=== PATIENT | male | born 1980 | race Two or more races ===

== ENCOUNTER 2023-06-16 14:47 | Emergency (ER) | payer OTHER ==
[~2023-06-16] VITALS: Ht 167.6 cm; Wt 85.8 kg
[2023-06-16 14:47] VITALS: BP 134/87; PULSE 90; RESP 18; TEMP 98.2; O2SAT 97
[2023-06-16] MEDS ORDERED: TYLENOL PO ONE (15:12)
[2023-06-16] MEDS: TYLENOL PO STA (15:30)
[2023-06-16 15:50] VITALS: BP 136/85; PULSE 85; RESP 18; O2SAT 97
[2023-06-16 15:51] VITALS: BP_SYST 136; RESP 18
== END 2023-06-16 15:56 | disposition home or self-care (01) ==
LOC: ER 14:47
DX: S80.02XA Contusion of left knee, initial encounter (principal); S80.01XA Contusion of right knee, initial encounter; S09.90XA Unspecified injury of head, initial encounter; V89.2XXA Person injured in unspecified motor-vehicle accident, traffic, initial encounter; Y93.89 Activity, other specified; Y92.89 Other specified places as the place of occurrence of the external cause; Y99.8 Other external cause status
CPT/HCPCS: 99284; 73560 ×2; 70450; 72125; A9150